=== PATIENT | female | born 1995 | race Caucasian/White ===

== ENCOUNTER 2022-02-02 16:58 | Emergency (ER) | payer BC, OTHER ==
[2022-02-02 17:01] VITALS: TEMP 98.3
[2022-02-02] MEDS ORDERED: SODIUM CHLORIDE 0.9% 1,000 ML IV STA (17:36)
[2022-02-02 18:50] VITALS: BP 119/68
[2022-02-02 18:55] LABS: Appearance,Urine Clear (Clear); Bilirubin,Urine Negative (Negative); Blood,Urine Negative (Negative); Color,Urine Colorless; Glucose,Urine (UA) Negative (Negative); Ketones,Urine Negative (Negative); Leukocyte Esterase,Urine Negative (Negative); Nitrite,Urine Negative (Negative); PH, Urine 6.5 (5.0-8.0); Protein,Urine Negative (Negative); Specific Gravity,Urine 1.002 (1.001-1.035); Urobilinogen,Urine <2.0 mg/dL (<2.0)
[2022-02-02 18:57] LABS: Basophils # (A) 0.1 k/uL (0-0.2); Basophils % (A) 1 %; Eosinophils # (A) 0.2 k/uL (0-0.7); Eosinophils % (A) 1 %; HCT 35.2 % (34.0-46.0); HGB 11.7 gm/dL (11.4-16.0); Lymphocytes # (A) 2.5 k/uL (1.0-4.8); Lymphocytes % (A) 21 %; MCH 30.3 pg (25.0-35.0); MCHC 33.3 g/dL (31.0-37.0); MCV 90.9 fL (80.0-100.0); Mean Platelet Volume 8.1; Monocytes # (A) 0.7 k/uL (0-1.0); Monocytes % (A) 6 %; Neutrophils # (A) 8.3 k/uL (1.3-7.7); Neutrophils % (A) 70 %; Platelet Count 271 k/uL (150-450); RBC 3.87 m/uL (3.80-5.40); RDW 13.2 % (11.5-15.5); WBC 11.9 k/uL (3.8-10.6)
[2022-02-02 19:02] LABS: Chloride 106 mmol/L (98-107)
[2022-02-02 19:05] LABS: ALT 20 U/L (4-34); AST 22 U/L (14-36); African American GFR (CKD) >90 (>60 ml/min/1.73 sqM); Albumin 4.1 g/dL (3.5-5.0); Alkaline Phosphatase 50 U/L (38-126); Anion Gap 4 mmol/L; Blood Urea Nitrogen 10 mg/dL (7-17); Calcium 9.3 mg/dL (8.4-10.2); Carbon Dioxide 26 mmol/L (22-30); Glucose 87 mg/dL (74-99); Lipase 58 U/L (23-300); Non-African American GFR(CKD) >90 (>60 ml/min/1.73 sqM); Potassium 3.9 mmol/L (3.5-5.1); Sodium 136 mmol/L (137-145); Total Bilirubin 0.1 mg/dL (0.2-1.3); Total Protein 6.3 g/dL (6.3-8.2)
[2022-02-02 19:24] VITALS: PULSE 81; RESP 16
--- NOTE | 2022-02-02 19:39 | US ---
EXAMINATION TYPE: Transabdominal DATE OF EXAM: 02/02/2022 6:29 PM COMPARISON: NONE CLINICAL HISTORY: pelvic pain approx 5 weeks. Pain. Hx 1 . . EXAM PERFORMED: Transvaginal (TV) and Transabdominal (TA) EXAM MEASUREMENTS: GESTATIONAL AGE / DATING Physician Established: Not yet established. Dates by LMP: (7 weeks/1 day) EDC: 09/20/2022 Dates by First Scan: This is first scan. Dates by Current Scan for: (7 weeks/0 days) EDC: 09/21/2022 MATERNAL ANATOMY Uterus: 9.4 x 7.3 x 7.0 cm. Anteverted. Right Ovary: 4.4 x 1.4 x 1.3 cm. Left Ovary: 6.7 x 5.7 x 5.3 cm. Appears enlarged. Anechoic area seen: 6.6 x 5.4 x 4.4 cm. Arterial and venous flow shown within the ovary. Post CDS / Adnexa: Fluid seen in cul de sac. Presence of free fluid: Yes in cul de sac. Presence of corpus luteal cyst: Anechoic area seen left ovary as mentioned above. Presence of subchorionic bleed: Possible. Heterogeneous, hypoechoic area seen inferior to the gestati onal sac: 0.8 x 0.9 x 1.6 cm. GESTATION / SURVEY CRL: 0.93 cm. (7 weeks/0 days) Yolk Sac (normal less than 6mm): 2.9 mm. Heart Rate: 142 bpm, second measurement 149 bpm. Rhythm: Normal IUP: Viable IUP Date of LMP: 12/14/2021 Beta HcG (if available): Not available IMPRESSION: 1. Single live intrauterine with calculated ultrasound age of 7 weeks 0 days by crown rump length.
--- NOTE | 2022-02-02 20:06 | ED ---
Abdominal Pain HPI - General Chief Complaint: Abdominal Pain Stated Complaint: 6 weeks & abd pain Time Seen by Provider: 02/02/22 17:30 Source: patient Mode of arrival: ambulatory Limitations: no limitations - History of Present Illness Initial Comments: Patient is a 26-year-old A1 female at approximately 6 weeks who presents to the emergency department with a chief complaint of pelvic pain. Patient states symptoms started yesterday. Describes the pain as cramping bilaterally. Patient states the pain is mild however she was concerned for baby. She denies fever, chills, vaginal bleeding, vaginal discharge, and burning with urination. Patient admits to nausea however has been experiencing morning sickness. Patient states she has been taking her boyfriend's Zofran at home which has been helping. No concern for sexually transmitted infections. Patient has her first appointment with her OB Dr. Duval in [place] at the end of January. - Related Data Home Medications Medication Instructions Recorded Confirmed Albuterol Sulfate [Ventolin HFA] 2 puff INHALATION RT-QID PRN 02/02/22 02/02/22 Eyo-Zwve-Sxyun Acid 1 cap PO DAILY 02/02/22 02/02/22 [-U Capsule (formulary)] Previous Rx's Medication Instructions Recorded Ondansetron Odt [Zofran Odt] 4 mg PO Q8HR PRN 7 Days #21 tab 02/02/22 Allergies Allergy/AdvReac Type Severity Reaction Status Date / Time No Known Allergies Allergy Verified 02/02/22 18:13 Review of Systems ROS Statement: Those systems with pertinent positive or pertinent negative responses have been documented in the HPI. ROS Other: All systems not noted in ROS Statement are negative. Past Medical History Past Medical History: No Reported History History of Any Multi-Drug Resistant Organisms: None Reported Past Surgical History: No Surgical Hx Reported Past Psychological History: No Psychological Hx Reported Smoking Status: Never smoker Past Alcohol Use History: None Reported Past Drug Use History: None Reported General Exam Limitations: no limitations General appearance: alert, in no apparent distress Head exam: Present: atraumatic, normocephalic, normal inspection Neck exam: Present: normal inspection Respiratory exam: Present: normal lung sounds bilaterally. Absent: respiratory distress, wheezes, rales, rhonchi, stridor Cardiovascular Exam: Present: regular rate, normal rhythm, normal heart sounds. Absent: systolic murmur, diastolic murmur, rubs, gallop, clicks GI/Abdominal exam: Present: soft, normal bowel sounds. Absent: distended, tenderness, guarding, rebound, rigid Neurological exam: Present: alert, oriented X3, CN II-XII intact Psychiatric exam: Present: normal affect, normal mood Skin exam: Present: warm, dry, intact, normal color. Absent: rash Course Vital Signs 02/02/22 02/02/22 02/02/22 16:59 18:01 19:22 Temperature 98.3 F Pulse Rate 91 72 81 Respiratory 16 18 16 Rate Blood Pressure 131/81 119/68 O2 Sat by Pulse 100 100 Oximetry Medical Decision Making - Medical Decision Making This is a 26-year-old female at 6 weeks who presents with pelvic cramping. Thorough history and examination were performed. Patient states symptoms are mild however wants to make sure baby is safe. She denies vaginal bleeding and vaginal discharge. I will obtain laboratory studies and ultrasound. Serum beta HCG is 96,753.6. Patient has mild leukocytosis at 11.9. Ultrasound shows a single live intrauterine with a heart rate at 142. At this time baby is doing well and patient can be discharged with instruction to follow up with her OB as scheduled. I will send patient home with Sahil. Return parameters discussed. Patient verbalizes understanding and is agreeable to this plan. Dr. Cabral is my attending. - Lab Data Result diagrams: 02/02/22 18:13 02/02/22 18:13 Lab Results 02/02/22 02/02/22 02/02/22 Range/Units 18:13 18:13 18:13 WBC 11.9 H (3.8-10.6) k/uL RBC 3.87 (3.80-5.40) m/uL Hgb 11.7 (11.4-16.0) gm/dL Hct 35.2 (34.0-46.0) % MCV 90.9 (80.0-100.0) fL MCH 30.3 (25.0-35.0) pg MCHC 33.3 (31.0-37.0) g/dL RDW 13.2 (11.5-15.5) % Plt Count 271 (150-450) k/uL MPV 8.1 Neutrophils % 70 % Lymphocytes % 21 % Monocytes % 6 % Eosinophils % 1 % Basophils % 1 % Neutrophils # 8.3 H (1.3-7.7) k/uL Lymphocytes # 2.5 (1.0-4.8) k/uL Monocytes # 0.7 (0-1.0) k/uL Eosinophils # 0.2 (0-0.7) k/uL Basophils # 0.1 (0-0.2) k/uL Sodium 136 L (137-145) mmol/L Potassium 3.9 (3.5-5.1) mmol/L Chloride 106 (98-107) mmol/L Carbon Dioxide 26 (22-30) mmol/L Anion Gap 4 mmol/L BUN 10 (7-17) mg/dL Creatinine 0.69 (0.52-1.04) mg/dL Est GFR (CKD-EPI)AfAm >90 (>60 ml/min/1.73 sqM) Est GFR (CKD-EPI)NonAf >90 (>60 ml/min/1.73 sqM) Glucose 87 (74-99) mg/dL Calcium 9.3 (8.4-10.2) mg/dL Total Bilirubin 0.1 L (0.2-1.3) mg/dL AST 22 (14-36) U/L ALT 20 (4-34) U/L Alkaline Phosphatase 50 (38-126) U/L Total Protein 6.3 (6.3-8.2) g/dL Albumin 4.1 (3.5-5.0) g/dL Lipase 58 (23-300) U/L HCG, Quant 88549.6 mIU/mL Urine Color Colorless Urine Appearance Clear (Clear) Urine pH 6.5 (5.0-8.0) Ur Specific [place] 1.002 (1.001-1.035) Urine Protein Negative (Negative) Urine Glucose (UA) Negative (Negative) Urine Ketones Negative (Negative) Urine Blood Negative (Negative) Urine Nitrite Negative (Negative) Urine Bilirubin Negative (Negative) Urine Urobilinogen <2.0 (<2.0) mg/dL Ur Leukocyte Esterase Negative (Negative) Disposition Clinical Impression: Abdominal pain during in first trimester, Nausea Disposition: HOME SELF-CARE Condition: Good Instructions (If sedation given, give patient instructions): Abdominal Pain in (ED) Additional Instructions: Please take medication as directed. Follow-up with your MAIL MESSENGER as scheduled. Return to the emergency department if you experience new, concerning, or worsening symptoms. Prescriptions: Ondansetron Odt [Zofran Odt] 4 mg PO Q8HR PRN 7 Days #21 tab PRN Reason: Nausea Is patient prescribed a controlled substance at d/c from ED?: No Referrals: Sukhdev Hernández MD [Primary Care Provider] - 1-2 days Time of Disposition: 20:05
[2022-02-02 20:53] LABS: HCG,Quantitative Serum 96753.6 mIU/mL
== END 2022-02-02 20:49 | disposition home or self-care (01) ==
LOC: EC 16:58
DX: O26.891 Other specified pregnancy related conditions, first trimester (principal); R10.2 Pelvic and perineal pain; R11.0 Nausea; O99.111 Other diseases of the blood and blood-forming organs and certain disorders involving the immune mechanism complicating pregnancy, first trimester; D72.829 Elevated white blood cell count, unspecified; Z3A.01 Less than 8 weeks gestation of pregnancy
CPT/HCPCS: 36415; 76801; 76817; 80053; 81003; 83690; 84702; 85025; 96360; 99284

== ENCOUNTER 2024-05-14 19:40 | Emergency (ER) | payer BC ==
[2024-05-14 19:43] VITALS: TEMP 98.3
--- NOTE | 2024-05-14 21:19 | ED ---
Headache HPI - General Chief Complaint: Headache Stated Complaint: migraine Time Seen by Provider: 05/14/24 21:17 Source: RN notes reviewed Mode of arrival: ambulatory Limitations: no limitations - History of Present Illness Initial Comments: 28-year-old female no significant past medical history presenting with headache x 2 days. Patient reports yesterday she was at work when she gradually began to experience a sharp headache described as a band around her forehead radiating to the back of the head and the neck. Admits to sensitivity to light. Denies history of migraines. She has been taking Excedrin and was seen at urgent care where she was provided with a steroid injection with no relief. Admits associated nausea, denies fever, chills, abdominal pain, nasal congestion, cough, sore throat. Denies . - Related Data Home Medications Medication Instructions Recorded Confirmed Albuterol Sulfate [Ventolin HFA] 2 puff INHALATION RT-QID PRN 02/02/22 02/02/22 Uts-Srfy-Cpaax Acid 1 cap PO DAILY 02/02/22 02/02/22 [-U Capsule (formulary)] Previous Rx's Medication Instructions Recorded Ondansetron Odt [Zofran Odt] 4 mg PO Q8HR PRN 7 Days #21 tab 02/02/22 Ketorolac [Toradol] 10 mg PO Q8HR #15 tab 05/14/24 Allergies Allergy/AdvReac Type Severity Reaction Status Date / Time No Known Allergies Allergy Verified 05/14/24 19:43 Review of Systems ROS Statement: Those systems with pertinent positive or pertinent negative responses have been documented in the HPI. ROS Other: All systems not noted in ROS Statement are negative. Past Medical History Past Medical History: No Reported History History of Any Multi-Drug Resistant Organisms: None Reported Past Surgical History: No Surgical Hx Reported Past Psychological History: No Psychological Hx Reported Smoking Status: Never smoker Past Alcohol Use History: None Reported Past Drug Use History: None Reported General Exam Limitations: no limitations General appearance: alert, in no apparent distress Head exam: Present: atraumatic, normocephalic, normal inspection Eye exam: Present: normal appearance, PERRL, EOMI. Absent: scleral icterus, conjunctival injection, periorbital swelling ENT exam: Present: normal exam, mucous membranes moist Neck exam: Present: normal inspection. Absent: tenderness, meningismus, lymphadenopathy Respiratory exam: Present: normal lung sounds bilaterally. Absent: respiratory distress, wheezes, rales, rhonchi, stridor Cardiovascular Exam: Present: regular rate, normal rhythm, normal heart sounds. Absent: systolic murmur, diastolic murmur, rubs, gallop, clicks GI/Abdominal exam: Present: soft, normal bowel sounds. Absent: distended, tenderness, guarding, rebound, rigid Neurological exam: Present: alert, oriented X3, CN II-XII intact Psychiatric exam: Present: normal affect, normal mood Skin exam: Present: warm, dry, intact, normal color. Absent: rash Course Vital Signs 05/14/24 19:42 Temperature 98.3 F Pulse Rate 111 H Respiratory 20 Rate Blood Pressure 141/99 O2 Sat by Pulse 99 Oximetry Medical Decision Making - Medical Decision Making Was pt. sent in by a medical professional or institution ([facility], [facility], urgent care, hospital, or longterm...) When possible be specific @ -No Did you speak to anyone other than the patient for history (EMS, parent, family, police, friend...)? What history was obtained from this source @ -No Did you review nursing and triage notes (agree or disagree)? Why? @ -I reviewed and agree with nursing and triage notes Were old charts reviewed (outside hosp., previous admission, EMS record, old EKG, old radiological studies, urgent care reports/EKG's, longterm records)? Report findings @ -No old charts were reviewed Differential Diagnosis (chest pain, altered mental status, abdominal pain women, abdominal pain men, vaginal bleeding, weakness, fever, dyspnea, syncope, headache, dizziness, GI bleed, back pain, seizure, CVA, palpatations, mental health, musculoskeletal)? @ -Differential Headache: Migraine, tension, cluster, carbon monoxide, central venous thrombosis, pension karma temporal arteritis, acute closure glaucoma, intercranial hemorrhage, mast oiditis, sinusitis, head injury, this is not meant to be an all-inclusive list. EKG interpreted by me (3pts min.). @ -None X-rays interpreted by me (1pt min.). @ -None done CT interpreted by me (1pt min.). @ -CT brain reveals no acute process U/S interpreted by me (1pt. min.). @ -None done What testing was considered but not performed or refused? (CT, X-rays, U/S, labs)? Why? @ -None What meds were considered but not given or refused? Why? @ -None Did you discuss the management of the patient with other professionals (professionals i.e. , PA, [employer] [employer], lab, RT, psych nurse, neonatal social worker, multimedia services manager, teacher, payroll officer, bottle caser)? Give summary @ -No Was smoking cessation discussed for >3mins.? @ -No Was critical care preformed (if so, how long)? @ -No Were there social determinants of health that impacted care today? How? (Homelessness, low income, unemployed, alcoholism, drug addiction, transportation, low edu. Level, literacy, decrease access to med. care, fci, rehab)? @ -No Was there de-escalation of care discussed even if they declined (Discuss DNR or withdrawal of care, Hospice)? DNR status @ -No What co-morbidities impacted this encounter? (DM, HTN, Smoking, COPD, CAD, Ca ncer, CVA, ARF, Chemo, Hep., AIDS, mental health diagnosis, sleep apnea, morbid obesity)? @ -None Was patient admitted / discharged? Hospital course, mention meds given and route, prescriptions, significant lab abnormalities, going to OR and other pertinent info. @ -Discharged. This is a 28-year-old female presenting with headache x 2 days. Patient has no histories of headaches or migraines. She has been taking [id number] medications with no relief. Vital signs remarkable for mild tachycardia. Neuro examination is unremarkable. On auscultation of heart, heart rate has decreased to approximately 80 bpm. Patient is provided with IV fluids and analgesics. CT of brain reveals no acute process. Upon reevaluation, patient states symptoms have improved and feels stable for discharge. Return precautions discussed with patient and patient conveys understanding and agrees to plan. Case was discussed with my ED attending Dr. Cornejo. Patient stable at time of discharge. Undiagnosed new problem with uncertain prognosis? @ -No Drug Therapy requiring intensive monitoring for toxicity (Heparin, Nitro, Insulin, Cardizem)? @ -No Were any procedures done? @ -No Diagnosis/symptom? @ -Acute headache Acute, or Chronic, or Acute on Chronic? @ -Acute Uncomplicated (without systemic symptoms) or Complicated (systemic symptoms)? @ -Uncomplicated Side effects of treatment? @ -No Exacerbation, Progression, or Severe Exacerbation? @ -No Poses a threat to life or bodily function? How? (Chest pain, USA, DC, pneumonia, PE, COPD, DKA, ARF, appy, cholecystitis, CVA, Diverticulitis, Homicidal, Suicidal, threat to staff... and all critical care pts) @ -No Disposition Clinical Impression: Headache Disposition: HOME SELF-CARE Condition: Stable Instructions (If sedation given, give patient instructions): Acute Headache (ED) Additional Instructions: Take Toradol and Zofran as needed for headache and nausea. Please return to the Emergency Department if symptoms worsen or any other concerns. Prescriptions: Ketorolac [Toradol] 10 mg PO Q8HR #15 tab Is patient prescribed a controlled substance at d/c from ED?: No Referrals: None,Stated [Primary Care Provider] - 1-2 days Time of Disposition: 22:34
[2024-05-14] MEDS: METOCLOPRAMIDE 5 MG/ML 2 ML VIAL IVP STA (21:43)
[2024-05-14] MEDS: SODIUM CHLORIDE 0.9% 1,000 ML IV STA (21:43)
[2024-05-14] MEDS: diphenhydrAMINE 50 MG/ML 1 ML VIAL IVP STA (21:43)
--- NOTE | 2024-05-14 21:43 | CT ---
EXAMINATION TYPE: CT brain wo con DATE OF EXAM: 05/14/2024 HISTORY: CAMACHO. CT DLP: 1168.6 mGycm. Automated Exposure Control for Dose Reduction was Utilized. TECHNIQUE: CT scan of the head is performed without contrast. COMPARISON: None FINDINGS: The calvarium is intact. There is no intracranial hemorrhage. There is no intracranial mass or mass effect. No definite new intra-axial or extra-axial attenuation defect. The paranasal sinuses, middle ear cavities, and mastoid sinus air cells are clear. The orbits are unr emarkable. Incidental note is made of bilateral temporalis hypertrophy, a findings which can correlate with brux ism. IMPRESSION: No acute cranial/intracranial process. [facility], , 05/14/2024 9:40 PM
[2024-05-14] MEDS: KETOROLAC 15 MG/ML 1 ML VIAL IVP STA ×2 (21:50→22:57)
[2024-05-14] MEDS: ONDANSETRON 4 MG ODT STARTER PACK 2 TAB BTL PO STA (22:58)
[2024-05-14 23:14] VITALS: BP 108/60; PULSE 60; RESP 18
== END 2024-05-14 23:14 | disposition home or self-care (01) ==
LOC: EC 19:40
DX: R51.9 Headache, unspecified (principal)
CPT/HCPCS: 70450; 96361; 96374; 96375; 96376; 99284